=== PATIENT | male | born 1990 | race Caucasian/White ===

== ENCOUNTER → 2017-03-12 | Outpatient (CLI) | payer OTHER ==
[~2017-03-12] VITALS: Ht 175.3 cm; Wt 103.4 kg
[~2017-03-12] MED LIST: ALBU17IN INH; LIDOCAINE 2% INJ 100 MG/5 ML SDV (FOR ANES.) As Ordered ONE; NS 1,000 ML IV SCH; PROPOFOL 200 MG/20 ML VIAL As Ordered ONE; PROTPAK PO
--- NOTE | 2017-03-12 16:03 | ROOR ---
Patient Name: Kiko Grey Procedure Date: 03/12/2017 3:12 PM Date of : 1990 Age: 26 Room: [facility] Gender: Male Note Status: Finalized Procedure: Upper GI endoscopy Indications: Dysphagia Providers: Leif BRAR MD Referring MD: CAREY Sanders Requesting Provider: Medicines: Monitored Anesthesia Care Complications: No immediate complications. Procedure: Pre-Anesthesia Assessment: - The heart rate, respiratory rate, oxygen saturations, blood pressure, adequacy of pulmonary ventilation, and response to care were monitored throughout the procedure. The Endoscope was introduced through the mouth, and advanced to the second part of duodenum. The upper GI endoscopy was accomplished without difficulty. The patient tolerated the procedure well. Findings: One moderate (circumferential scarring or stenosis; an endoscope may pass) benign-appearing, intrinsic stenosis was found at the gastroesophageal junction. This measured less than one cm (in length) and was traversed after dilation. A TTS dilator was passed through the scope. Dilation with a 15-16.5-18 mm balloon dilator was performed to 15 mm. The dilation site was examined and showed moderate improvement in luminal narrowing. One moderate (circumferential scarring or stenosis; an endoscope may pass) benign-appearing, intrinsic stenosis was found at the cricopharyngeus. This measured less than one cm (in length) and was traversed. The scope was withdrawn. Dilation was performed with a Aparicio dilator with mild resistance at 42 Fr. The dilation site was examined and showed complete resolution of luminal narrowing. Mucosal changes including ringed esophagus, small-caliber esophagus and stenosis were found in the entire esophagus. Biopsies were taken with a cold forceps for histology. A single diminutive mucosal nodule was found at the gastroesophageal junction. Biopsies were taken with a cold forceps for histology. The exam was otherwise without abnormality. Impression: - Benign-appearing thin membranous esophageal ring/stricture--Upper esophagus. Dilated with Aparicio dilator to 42 F. - Benign-appearing thin membranous esophageal ring/stricture--GE junction. Dilated with Balloon dilator to 15 mm. (=45 F) - Esophageal mucosal changes suggestive of eosinophilic esophagitis vs reflux esophagitis. Biopsied. - Mucosal nodule found in the esophagus. Biopsied. - The examination was otherwise normal. Recommendation: - Use Protonix (pantoprazole) 40 mg PO BID. - Telephone endoscopist for pathology results in 2 weeks. - Observe patient's clinical course. - (the script was sent to your pharmacy on file) Leif Brar MD Leif BRAR MD 03/12/2017 4:02:43 PM This report has been signed electronically. Number of Addenda: 0 Note Initiated On: 03/12/2017 3:12 PM Estimated Blood Loss: Estimated blood loss: none.
--- NOTE | 2017-03-12 16:05 | ROOR ---
Patient Name: Kiko Grey Procedure Date: 03/12/2017 3:13 PM Date of : 1990 Age: 26 Room: [facility] Gender: Male Note Status: Finalized Procedure: Colonoscopy Indications: Hematochezia Providers: Leif GALINDO MD Referring MD: CAREY Sanders Requesting Provider: Medicines: Monitored Anesthesia Care Complications: No immediate complications. Procedure: Pre-Anesthesia Assessment: - The heart rate, respiratory rate, oxygen saturations, blood pressure, adequacy of pulmonary ventilation, and response to care were monitored throughout the procedure. The Colonoscope was introduced through the anus and advanced to 4 cm into the ileum. The colonoscopy was performed without difficulty. The patient tolerated the procedure well. The quality of the bowel preparation was good. Findings: The perianal and digital rectal examinations were normal. Small Internal Hemorrhoids. The entire examined colon appeared normal on direct and retroflexion views. The terminal ileum appeared normal. Impression: - Small Internal Hemorrhoids. - The colon is normal on direct and retroflexion views. - The terminal ileum was normal. - No specimens collected. Recommendation: - Use fiber, for example Citrucel, Fibercon, Konsyl or Metamucil. Leif Galindo MD Leif GALINDO MD 03/12/2017 4:04:38 PM This report has been signed electronically. Number of Addenda: 0 Note Initiated On: 03/12/2017 3:13 PM Estimated Blood Loss: Estimated blood loss: none.
[2017-03-12 16:27] VITALS: BP 135/61
== END | disposition home or self-care (01) ==
LOC: M OPP 13:40
PROVIDERS: ATTEND Internal Medicine Gastroenterology
DX: K64.8 Other hemorrhoids (principal); R13.10 Dysphagia, unspecified; K22.2 Esophageal obstruction; K22.8 Other specified diseases of esophagus; K20.9 Esophagitis, unspecified; J45.909 Unspecified asthma, uncomplicated; R06.83 Snoring; Z79.899 Other long term (current) drug therapy; Z88.0 Allergy status to penicillin

== ENCOUNTER → 2019-06-20 | Outpatient (REF) | payer OTHER ==
[~2019-06-20] MED LIST changes: -LIDOCAINE 2% INJ 100 MG/5 ML SDV (FOR ANES.) As Ordered ONE; -NS 1,000 ML IV SCH; -PROPOFOL 200 MG/20 ML VIAL As Ordered ONE
== END ==
LOC: M SFHCPLAZ 08:15
PROVIDERS: ATTEND Nurse Practitioner Family
DX: Z00.00 Encounter for general adult medical examination without abnormal findings (principal); Z13.220 Encounter for screening for lipoid disorders; Z68.37 Body mass index [BMI] 37.0-37.9, adult; F41.9 Anxiety disorder, unspecified

== ENCOUNTER 2019-10-03 09:59 | Emergency (ER) | payer OTHER ==
[~2019-10-03] VITALS: Ht 175.3 cm; Wt 116.0 kg
[2019-10-03] MEDS ORDERED: ESCI20TA (10:03)
[2019-10-03] MEDS ORDERED: OMEP-221 (10:03)
[2019-10-03 10:57] LABS: BASO % 0.4 % (0.0-1.0); EOS # 0.1 10^3/uL (0.0-0.5); EOS % 1.1 % (0.0-3.0); HEMOGLOBIN 14.8 g/dl (13.5-17.5); LYMPH # 1.4 10^3/uL (1.5-5.0); LYMPH % 30.1 % (24.0-44.0); MEAN CORPUSCULAR HGB CONC 34.4 g/dl (32.0-36.5); MEAN CORPUSCULAR VOLUME 87.2 fl (80.0-96.0); MONO # 0.3 10^3/uL (0.0-0.8); MONO % 6.6 % (0.0-5.0); NEUTROPHILS # 2.8 10^3/uL (1.5-8.5); NEUTROPHILS % 61.6 % (36.0-66.0); PLATELET COUNT, AUTOMATED 270 10^3/uL (150-450); RED BLOOD COUNT 4.93 10^6/uL (4.30-6.10); WHITE BLOOD COUNT 4.6 10^3/uL (4.0-10.0)
--- NOTE | 2019-10-03 11:16 | REP ---
Clinical: Acute chest pain . Comparison: 01/11/2004 . Technique: PA and lateral. Findings: The mediastinum and cardiac silhouette are normal. The lung garza are clear and without acute consolidation, effusion, or pneumothorax. The skeletal structures are intact and normal. Impression: 1. No acute cardiopulmonary process. Electronically Signed by Nolan Morton MD 10/03/2019 11:07 A
[2019-10-03 11:19] LABS: ALBUMIN 3.9 GM/DL (3.2-5.2); ALT/SGPT 30 U/L (12-78); BILIRUBIN,DIRECT 0.2 MG/DL (0.0-0.2); BILIRUBIN,TOTAL 0.9 MG/DL (0.2-1.0); BLOOD UREA NITROGEN 11 MG/DL (7-18); CALCIUM LEVEL 8.8 MG/DL (8.5-10.1); CARBON DIOXIDE LEVEL 26 MEQ/L (21-32); CHLORIDE LEVEL 108 MEQ/L (98-107); CK-MB VALUE MASS 1.1 NG/ML (<3.6); CPK CREATINE PHOSPHOKINASE 134 U/L (39-308); CREATININE FOR GFR 1.02 MG/DL (0.70-1.30); GLOMERULAR FILTRATION RATE > 60.0 (>60); GLUCOSE, FASTING 103 MG/DL (70-100); LIPASE 130 U/L (73-393); MB/CK RELATIVE INDEX 0.82 (< OR =4); POTASSIUM SERUM 4.1 MEQ/L (3.5-5.1); SODIUM LEVEL 141 MEQ/L (136-145); TOTAL PROTEIN 7.4 GM/DL (6.4-8.2); TROPONIN I < 0.02 NG/ML (< 0.10)
[2019-10-03 11:51] LABS: C REACTIVE PROTEIN QUANTITATIV < 0.30 MG/DL (0.00-0.30)
[2019-10-03 12:32] LABS: ERYTHROCYTE SEDIMENTATION RATE 7 mm/hr (0-15)
[2019-10-03 12:44] VITALS: BP 154/90
--- NOTE | 2019-10-03 19:35 | ECGEPIP ---
[facility] - ED Test Date: 2019-10-03 Pat Name: DYLAN HOYT Department: Room: - Gender: Male Resource Analyst: [facility] : 1990 Requested By: JUVENCIO Oates PA-C Order Number: [id number] Reading MD: Edwin Dixon Measurements Intervals [place] Rate: 79 P: 39 SC: 136 QRS: -10 QRSD: 98 T: -3 QT: 358 QTc: 412 Interpretive Statements SINUS RHYTHM NONSPECIFIC T WAVE ABNORMALITIES NO PRIORS FOR COMPARISON Electronically Signed on 10-03-2019 19:35:06 EST by Edwin Dixon
== END 2019-10-03 12:46 | disposition home or self-care (01) ==
LOC: M ED 09:59
DX: R07.9 Chest pain, unspecified (principal); F32.9 Major depressive disorder, single episode, unspecified; F41.9 Anxiety disorder, unspecified; Z79.51 Long term (current) use of inhaled steroids; Z88.0 Allergy status to penicillin

== ENCOUNTER 2020-05-25 09:24 | Day surgery (SDC) | payer OTHER ==
[~2020-05-25] VITALS: Ht 177.8 cm; Wt 123.8 kg
[~2020-05-25 09:24] MED LIST changes: +ESCI20TA; +LIDOCAINE 2% 100MG/5ML SDV (FOR ANES.) As Ordered ONE; +NS 1,000 ML IV ONE; +OMEP-221; +VENTAER INH; +propofoL 200 MG/20 ML VIAL As Ordered ONE
[2020-05-25] MEDS ORDERED: propofoL 200 MG/20 ML VIAL As Ordered ONE ×2 (09:30→09:31)
[2020-05-25] MEDS ORDERED: LIDOCAINE 2% 100MG/5ML SDV (FOR ANES.) As Ordered ONE (09:31)
[2020-05-25] MEDS ORDERED: fentaNYL 100 MCG/2 ML INJECTION (J3010) As Ordered ONE (10:19)
--- NOTE | 2020-05-25 10:39 | ROOR ---
Patient Name: Kiko Grey Procedure Date: 05/25/2020 10:16 AM Date of : 1990 Age: 30 Room: [facility] Gender: Male Note Status: Finalized Procedure: Upper GI endoscopy Indications: Dysphagia, Follow-up of esophageal stenosis Providers: Leif GALINDO MD Referring MD: Ju Mayes Do Requesting Provider: Medicines: Monitored Anesthesia Care Complications: No immediate complications. Procedure: Pre-Anesthesia Assessment: - The heart rate, respiratory rate, oxygen saturations, blood pressure, adequacy of pulmonary ventilation, and response to care were monitored throughout the procedure. The Endoscope was introduced through the mouth, and advanced to the second part of duodenum. The upper GI endoscopy was accomplished without difficulty. The patient tolerated the procedure well. Findings: Two distal mucosal schatzki like rings were found. A TTS dilator was passed through the scope. Dilation with a 15-16.5-18 mm balloon dilator was performed to 15 mm. The dilation site was examined and showed moderate mucosal disruption. This was biopsied with a cold forceps for evaluation of eosinophilic esophagitis. The exam of the esophagus was otherwise normal. The entire examined stomach was normal. A small hiatal hernia was present. The examined duodenum was normal. Impression: - Two mucosal schatzki like rings/stenoses were found in the distal esophagus. Dilated. Biopsied. - Normal stomach. - Small hiatal hernia. - Normal examined duodenum. Recommendation: - Continue present medications. - Observe patient's clinical course. Leif Galindo MD Leif GALINDO MD 05/25/2020 10:39:26 AM Electronically signed by Leif GALINDO MD Number of Addenda: 0 Note Initiated On: 05/25/2020 10:16 AM Estimated Blood Loss: Estimated blood loss: none.
[2020-05-25 10:50] VITALS: BP 134/91
== END 2020-05-25 11:00 | disposition home or self-care (01) ==
LOC: M OPP 09:24
PROVIDERS: ATTEND Internal Medicine Gastroenterology
DX: Q39.4 Esophageal web (principal); K22.2 Esophageal obstruction; K44.9 Diaphragmatic hernia without obstruction or gangrene; R13.10 Dysphagia, unspecified; Z79.899 Other long term (current) drug therapy; Z88.0 Allergy status to penicillin
CPT/HCPCS: 43239; 43249; 88305; J3010

== ENCOUNTER → 2024-02-09 | Outpatient (CLI) | payer OTHER ==
[~2024-02-09] MED LIST changes: -ESCI20TA; +ESCI20TA16; -LIDOCAINE 2% 100MG/5ML SDV (FOR ANES.) As Ordered ONE; -NS 1,000 ML IV ONE; -OMEP-221; +OMEP40CA5; -propofoL 200 MG/20 ML VIAL As Ordered ONE
[2024-02-09 14:06] LABS: HEMOGLOBIN A1c 5.2 % (4.0-6.0)
== END ==
LOC: M PLALAB 09:54
PROVIDERS: ATTEND Student in an Organized Health Care Education/Training Program
DX: Z13.1 Encounter for screening for diabetes mellitus (principal)